=== PATIENT | female | born 1955 | race African-American/Black ===

== ENCOUNTER 2017-05-09 14:18 | Emergency (ER) | payer OTHER ==
[2017-05-09] MEDS ORDERED: traMADol HCl 50 MG TAB ONE (15:07)
== END 2017-05-09 15:15 | disposition home or self-care (01) ==
LOC: SCSER 14:18
DX: M48.061 Spinal stenosis, lumbar region without neurogenic claudication (principal); M51.27 Other intervertebral disc displacement, lumbosacral region; G89.29 Other chronic pain; M10.9 Gout, unspecified; E11.9 Type 2 diabetes mellitus without complications; I10 Essential (primary) hypertension; E66.9 Obesity, unspecified; G47.00 Insomnia, unspecified; Z79.4 Long term (current) use of insulin; Z79.899 Other long term (current) drug therapy
CPT/HCPCS: 99282

== ENCOUNTER 2017-12-16 10:40 | Outpatient (CLI) | payer OTHER ==
--- NOTE | 2017-12-16 11:35 | RAD ---
RIGHT HIP TWO VIEWS: History: Disability. Pain. Comparison: None. FINDINGS: Mild loss of joint space height. Contour of the femoral head is maintained. No fracture. IMPRESSION: Mild degenerative change. POS: [facility]
--- NOTE | 2017-12-16 11:55 | RAD ---
LUMBAR SPINE THREE VIEWS: HISTORY: Disability. Pain. COMPARISON: 02/13/2004 FINDINGS: There are five lumbar type vertebral bodies. Vertebral body height is maintained. Preservation of d isk space height. No spondylolisthesis or spondylolysis. IMPRESSION: Unremarkable two views lumbar spine. POS: [facility]
== END 2017-12-16 10:41 | disposition home or self-care (01) ==
LOC: RAD 10:40
PROVIDERS: ATTEND Psychiatry & Neurology Neurology
DX: M54.9 Dorsalgia, unspecified (principal); M25.551 Pain in right hip; M16.11 Unilateral primary osteoarthritis, right hip
CPT/HCPCS: 72100